=== PATIENT | female | born 2000 | race Two or more races ===

== ENCOUNTER → 2023-06-21 | Outpatient (REF) | payer BC ==
[2023-06-21 17:29] LABS: HEMATOCRIT 42.9 % (36.0-47.0); HEMOGLOBIN 14.5 g/dl (12.0-15.5); MEAN CORPUSCULAR HEMOGLOBIN 30.8 pg (27.0-33.0); MEAN CORPUSCULAR HGB CONC 33.8 g/dl (32.0-36.5); MEAN CORPUSCULAR VOLUME 91.1 fl (80.0-96.0); PLATELET COUNT, AUTOMATED 420 10^3/uL (150-450); RED BLOOD COUNT 4.71 10^6/uL (4.00-5.40); WHITE BLOOD COUNT 9.8 10^3/uL (4.0-10.0)
[2023-06-21 18:20] LABS: HIV 1&2 SCREEN NEGATIVE (NEGATIVE)
[2023-06-21 18:28] LABS: HEPATITIS C VIRUS ABY INDEX 0.13 INDEX (<0.8)
[2023-06-21 18:46] LABS: GC DNA AMPLIFICATION NEGATIVE (NEGATIVE)
== END ==
LOC: M SFHCWAGY 16:40
PROVIDERS: ATTEND Advanced Practice Midwife
DX: Z34.01 Encounter for supervision of normal first pregnancy, first trimester (principal)

== ENCOUNTER → 2023-07-26 | Outpatient (CLI) | payer BC | LOC: M WHC 16:04 | PROVIDERS: ATTEND Advanced Practice Midwife | DX: Z34.02 Encounter for supervision of normal first pregnancy, second trimester (principal); Z53.9 Procedure and treatment not carried out, unspecified reason ==

== ENCOUNTER → 2023-07-26 | Outpatient (REF) | payer BC ==
[2023-07-26 18:38] LABS: TOTAL PROTEIN,RANDOM URINE 14.1 MG/DL (0.0-14.0)
[2023-07-26 18:41] LABS: CREATININE,RANDOM URINE 176.4 MG/DL
[2023-07-26 18:42] LABS: LDH LACTATE DEHYDROGENASE 214 U/L (120-246)
[2023-07-26 18:43] LABS: ALT/SGPT 30 U/L (7.0-40); AST/SGOT 18 U/L (<34); BILIRUBIN,TOTAL 0.2 MG/DL (0.3-1.2); CREATININE FOR GFR 0.57 MG/DL (0.55-1.30); GLOMERULAR FILTRATION RATE > 60.0 (>60)
[2023-07-26 18:46] LABS: URIC ACID 4.5 MG/DL (3.1-7.8)
[2023-07-26 19:01] LABS: HEMOGLOBIN A1c 4.5 % (4.0-6.0)
[2023-07-27 11:35] LABS: HEMATOCRIT 38.4 % (36.0-47.0); HEMOGLOBIN 13.3 g/dl (12.0-15.5); MEAN CORPUSCULAR HEMOGLOBIN 31.3 pg (27.0-33.0); MEAN CORPUSCULAR HGB CONC 34.6 g/dl (32.0-36.5); MEAN CORPUSCULAR VOLUME 90.4 fl (80.0-96.0); PLATELET COUNT, AUTOMATED 377 10^3/uL (150-450); RED BLOOD COUNT 4.25 10^6/uL (4.00-5.40); WHITE BLOOD COUNT 9.4 10^3/uL (4.0-10.0)
== END ==
LOC: M SFHCWAGY 17:10
PROVIDERS: ATTEND Advanced Practice Midwife
DX: O99.212 Obesity complicating pregnancy, second trimester (principal); Z3A.00 Weeks of gestation of pregnancy not specified

== ENCOUNTER → 2023-08-31 | Outpatient (CLI) | payer BC, OTHER | LOC: M WHC 15:14 | PROVIDERS: ATTEND Advanced Practice Midwife | DX: O32.1XX0 Maternal care for breech presentation, not applicable or unspecified (principal); Z3A.19 19 weeks gestation of pregnancy; O44.42 Low lying placenta NOS or without hemorrhage, second trimester ==

== ENCOUNTER → 2023-10-29 | Outpatient (CLI) | payer BC, OTHER ==
[2023-10-29 15:54] LABS: HEMATOCRIT 36.8 % (36.0-47.0); HEMOGLOBIN 12.6 g/dl (12.0-15.5); MEAN CORPUSCULAR HEMOGLOBIN 31.7 pg (27.0-33.0); MEAN CORPUSCULAR HGB CONC 34.2 g/dl (32.0-36.5); MEAN CORPUSCULAR VOLUME 92.7 fl (80.0-96.0); PLATELET COUNT, AUTOMATED 396 10^3/uL (150-450); RED BLOOD COUNT 3.97 10^6/uL (4.00-5.40); WHITE BLOOD COUNT 10.2 10^3/uL (4.0-10.0)
== END ==
LOC: M PLALAB 11:05
PROVIDERS: ATTEND Obstetrics & Gynecology
DX: O10.912 Unspecified pre-existing hypertension complicating pregnancy, second trimester (principal); Z3A.00 Weeks of gestation of pregnancy not specified

== ENCOUNTER → 2023-11-09 | Outpatient (CLI) | payer BC, OTHER | LOC: M RAD 08:12 | PROVIDERS: ATTEND Advanced Practice Midwife | DX: Z34.02 Encounter for supervision of normal first pregnancy, second trimester (principal) ==

== ENCOUNTER → 2023-11-09 | Outpatient (CLI) | payer BC, OTHER | LOC: M LAB 08:10 | PROVIDERS: ATTEND Obstetrics & Gynecology | DX: R73.09 Other abnormal glucose (principal) ==

== ENCOUNTER → 2023-11-29 | Outpatient (CLI) | payer BC, OTHER | LOC: M WHC 13:25 | PROVIDERS: ATTEND Advanced Practice Midwife | DX: Z34.03 Encounter for supervision of normal first pregnancy, third trimester (principal) ==

== ENCOUNTER → 2023-12-26 | Outpatient (REF) | payer BC, OTHER | LOC: M SFHCWAGY 12:56 | PROVIDERS: ATTEND Advanced Practice Midwife | DX: Z3A.35 35 weeks gestation of pregnancy (principal) ==

== ENCOUNTER → 2024-01-02 | Outpatient (CLI) | payer BC, OTHER ==
[2024-01-02 13:53] LABS: HEMATOCRIT 35.7 % (36.0-47.0); HEMOGLOBIN 11.8 g/dl (12.0-15.5); MEAN CORPUSCULAR HEMOGLOBIN 29.4 pg (27.0-33.0); MEAN CORPUSCULAR HGB CONC 33.1 g/dl (32.0-36.5); MEAN CORPUSCULAR VOLUME 88.8 fl (80.0-96.0); PLATELET COUNT, AUTOMATED 321 10^3/uL (150-450); RED BLOOD COUNT 4.02 10^6/uL (4.00-5.40); WHITE BLOOD COUNT 10.2 10^3/uL (4.0-10.0)
[2024-01-02 14:20] LABS: URIC ACID 5.6 MG/DL (3.1-7.8)
[2024-01-02 14:22] LABS: LDH LACTATE DEHYDROGENASE 166 U/L (120-246)
[2024-01-02 14:23] LABS: TOTAL PROTEIN,RANDOM URINE 31.3 MG/DL (0.0-14.0)
[2024-01-02 14:24] LABS: ALT/SGPT 19 U/L (7.0-40); AST/SGOT 15 U/L (<34); BILIRUBIN,TOTAL 0.3 MG/DL (0.3-1.2); GLOMERULAR FILTRATION RATE > 60.0 (>60)
[2024-01-02 14:40] LABS: CREATININE,RANDOM URINE 280.8 MG/DL
== END ==
LOC: M PLALAB 10:37
PROVIDERS: ATTEND Advanced Practice Midwife
DX: O10.919 Unspecified pre-existing hypertension complicating pregnancy, unspecified trimester (principal); Z3A.00 Weeks of gestation of pregnancy not specified

== ENCOUNTER → 2024-05-20 | Outpatient (REF) | payer BC ==
[~2024-05-20] MED LIST: COLA100C5 PO; IBUP80TA PO; LABE100T40 PO; PERCOCET PO; TUMS500C PO
== END ==
LOC: M PLALAB 15:08
PROVIDERS: ATTEND Advanced Practice Midwife
DX: Z12.4 Encounter for screening for malignant neoplasm of cervix (principal)